=== PATIENT | male | born 1955 | race Caucasian/White ===

== ENCOUNTER → 2018-02-21 12:16 | Outpatient (CLI) | payer MEDICARE, SELFPAY ==
[2018-02-21 13:54] LABS: *AMPHETAMINES SCREEN URINE Negative (Negative); *BARBITURATES SCREEN URINE Negative (Negative); *BENZODIAZEPINES SCREEN URINE Negative (Negative); Cannabinoids THC Negative (Negative); Cocaine Screen,Urine Negative (Negative); METHADONE URINE SCREEN Negative (Negative); OPIATES URINE SCREEN Negative (Negative)
[2018-02-21 13:56] LABS: Tricyclic Antidepressants Negative (Negative)
[2018-02-24 13:24] LABS: Fentanyl Interpretation Negative.; Fentanyl by LC-MS/MS Negative; Norfentanyl by LC-MS/MS Negative
[2018-02-27 18:09] LABS: Buprenorphine Negative; Norbuprenorphine Negative
[2018-03-05 14:32] LABS: Ethanol Not Detected; Isopropanol Not Detected
[2018-03-05 14:33] LABS: Acetone Not Detected
== END ==
PROVIDERS: PCP Internal Medicine Infectious Disease; Visit Provider Internal Medicine Infectious Disease
DX: Z79.891 Long term (current) use of opiate analgesic (principal); G89.4 Chronic pain syndrome; B20 Human immunodeficiency virus [HIV] disease
CPT/HCPCS: 80307; 80320; 80354; 84600

== ENCOUNTER 2018-07-29 14:43 | Emergency (ER) | payer SELFPAY ==
--- NOTE | 2018-07-29 15:04 | NUR.NOTE ---
Nursing Note: Patient stated to Access, Cameron that he could not wait any longer. Melba Dye.
[2018-08-01 14:41] LABS: HIV-1 RNA Quantification Undetected copies/mL (UNDECT)
[2018-08-01 14:51] LABS: CD3 81 % (62-87); CD4 47 % (35-63); CD8 33 % (10-35)
== END 2018-07-29 15:03 | disposition left before discharge ==
PROVIDERS: Emergency Provider Student in an Organized Health Care Education/Training Program; PCP Internal Medicine Infectious Disease
DX: R69 Illness, unspecified (principal); Z53.21 Procedure and treatment not carried out due to patient leaving prior to being seen by health care provider

== ENCOUNTER 2018-07-30 08:01 | Emergency (ER) | payer MEDICARE, SELFPAY ==
[2018-07-30 08:09] VITALS: BP 142/79; PULSE 65; RESP 15; TEMP 36.7; O2SAT 94
[2018-07-30] MEDS: Lactated Ringers 1,000 ML 1000 ML IV (09:04)
--- NOTE | 2018-07-30 09:10 | W.ED.GENAD ---
Discharge Plan Disposition Patient Disposition: HOME Discharge Details Chief Complaint: RespSymp Clinical Impression: Pneumonia Primary Care Provider: Frederick Hauser ED Provider: Amos Li Home Meds and New Rx's Prescriptions: New doxycycline hyclate [Vibramycin] 100 mg capsule 100 mg PO BID Qty: 14 RF: 0 Continued trazodone 100 MG tablet 1 tab PO PRN PRNRF: 0 hydromorphone 4 MG tablet 4 mg PO Q4H PRN PRNRF: 0 Genvoya 1 EACH tablet 1 ea PO DAILY RF: 0 Discharge Instructions Instructions: Pneumonia (ED) Additional Instructions: Please take the full course of antibiotic as prescribed. Labs are pending at time of discharge that require followup. Please follow-up with your infectious disease specialist. Call for an appointment. Please contact your primary care physician to arrange follow-up. Return to the ER for any worsening or new concerning symptoms. Referrals: Frederick Hauser [Primary Care Provider] - Medical Decision Making 9:10 --62-year-old male chronic HIV on antivirals, here with cough for the past few weeks after travel to the [place] ([place], [place], [place], [place] Patient saturating 94% in no respiratory distress. Consider pneumonia. cxr pending. Will send CD4 and viral load and attempt to obtain OSH ID records. 9:50 --I obtained and reviewed outside hospital records, infectious disease at [facility] office visit 05/29/2018 that notes viral load 05/29/2018 of less than 40, CD4 count 06/13/2017 527. 10:30 --labs reviewed and nondiagnostic. Chest x-ray interpreted by radiology: Negative, called and spoke with the radiologist about potential for right lower lobe infiltrate and she notes none present. Plan to speak with infectious disease. Awaiting callback. Will initiate treatment with doxycycline for clinical PNA. 11:20 --still awaiting callback from infectious disease. Patient wishes to leave at this point. I reviewed diagnostic results with the patient and his and reason for consultation. I recommended he stay for consultation complete but he would prefer to leave. He does plan to up with infectious disease regarding CD4 and viral load that were drawn today and send out labs. Disposition decision was made weighing the risks and benefits of hospitalization versus outpatient treatment, the risk for further decompensation, and the patient's wishes. The patient was stable and requested discharge. Prior to discharge, my usual and customary return precautions were reviewed with the patient - this included follow-up instructions and reason to return to the emergency department if condition worsens, does not improve as expected, or other new concerns arise. HPI General Date/Time Provider Initiated Documentation: 07/30/18 08:24. Limitations to Documentation: no limitations. Information obtained by: patient. HPI Narrative: 62-year-old with history of chronic HIV positive, on antiviral, here with chief complaint of cough. Patient notes that he was recently traveling to [place], [place] and dysuria over the past month. He returned a few days ago. He notes he has had cough for the past 2-3 weeks. Cough is been worse over the past 4 days. Is associated fever as well as sinus congestion. Cough is productive of paulson sputum. He does have sensation of chest congestion with this cough. Related Data Home Medications Medication Instructions Recorded Confirmed hydromorphone 4 mg PO Q4H PRN PRN 02/22/15 07/30/18 trazodone 1 tab PO PRN PRN 02/22/15 07/30/18 Genvoya 1 ea PO DAILY 11/10/16 07/30/18 doxycycline hyclate [Vibramycin] 100 mg PO BID #14 cap 07/30/18 Previous Rx's Medication Instructions Recorded doxycycline hyclate [Vibramycin] 100 mg PO BID #14 cap 07/30/18 Allergies Allergy/AdvReac Type Severity Reaction Status Date / Time No Known Allergies Allergy Unverified 07/30/18 08:18 General Stated Complaint: RespSymp ESDRAS: 3 Review of Systems Review of Systems All systems reviewed & are unremarkable except as noted in HPI and below Constitutional Reports fever(s) Respiratory Reports cough [facility] Medical History HIV (human immunodeficiency virus infection) (Chronic) Chronic hepatitis C Social History Smoking/Tobacco Use Status: Never Exam Const General: cooperative and no acute distress Orientation: alert and awake HENMT Head: normocephalic Mouth: moist mucous membranes Throat: tonsils normal, uvula midline and postnasal drainage Eyes Conjunctivae: normal conjunctivae Sclera: normal sclerae EOM: EOM intact bilaterally Neck Neck: trachea midline and supple Resp Auscultation: rales bilaterally, rhonchi and no wheezes Cardio Jugular venous pressure: no JVD Rate: regular rate and not tachycardic Rhythm: regular rhythm Heart Sounds: murmur systolic I/ and at the right sternal border GI Palpation: soft, not firm, no guarding, no masses, not rigid and nontender Skin General skin exam: no rashes or lesions noted Neuro General: alert, awake, oriented x3 and tone normal Extrem General: no edema Psych Mental Status: mental status grossly normal Course Vital Signs Temperature 36.7 C 07/30/18 08:09 Pulse 65 07/30/18 08:09 Respiratory Rate 15 07/30/18 08:09 Blood Pressure 142/79 H 07/30/18 08:09 Pulse Oximetry 94 L 07/30/18 08:09 Temperature 36.7 C 07/30/18 08:09 Temperature Source Oral 07/30/18 08:09 Pulse 65 07/30/18 08:09 Respiratory Rate 15 07/30/18 08:09 Respiratory Effort Non-Labored 07/30/18 08:15 Respiratory Depth Normal 07/30/18 08:15 Blood Pressure 142/79 H 07/30/18 08:09 Blood Pressure Position Sitting 07/30/18 08:09 Pulse Oximetry 94 L 07/30/18 08:09 Oxygen Delivery Method Room Air 07/30/18 08:09 Oxygen Flow Rate 0 07/30/18 08:09 Pain Level 0 07/30/18 08:09 Lab/Test Results Lab/Test Results: 07/30/18 08:47 Nasopharynx Influenza Types A,B Antigen - Pending 07/30/18 08:41 Blood Blood Culture - Pending 07/30/18 08:41 Blood Blood Culture - Pending
--- NOTE | 2018-07-30 09:16 | ED.GENADUL_ITS ---
Discharge Plan Disposition Patient Disposition: HOME Discharge Details Chief Complaint: RespSymp Clinical Impression: Pneumonia Primary Care Provider: Frederick Hauser ED Provider: Amos Li Home Meds and New Rx's Prescriptions: New doxycycline hyclate [Vibramycin] 100 mg capsule 100 mg PO BID Qty: 14 RF: 0 Continued trazodone 100 MG tablet 1 tab PO PRN PRNRF: 0 hydromorphone 4 MG tablet 4 mg PO Q4H PRN PRNRF: 0 Genvoya 1 EACH tablet 1 ea PO DAILY RF: 0 Discharge Instructions Instructions: Pneumonia (ED) Additional Instructions: Please take the full course of antibiotic as prescribed. Labs are pending at time of discharge that require followup. Please follow-up with your infectious disease specialist. Call for an appointment. Please contact your primary care physician to arrange follow-up. Return to the ER for any worsening or new concerning symptoms. Referrals: Frederick Hauser [Primary Care Provider] - Medical Decision Making 9:10 --62-year-old male chronic HIV on antivirals, here with cough for the past few weeks after travel to the [place] ([place], [place], [place], [place]). Patient saturating 94% in no respiratory distress. Consider pneumonia. cxr pending. Will send CD4 and viral load and attempt to obtain OSH ID records. 9:50 --I obtained and reviewed outside hospital records, infectious disease at [facility] office visit 05/29/2018 that notes viral load 05/29/2018 of less than 40, CD4 count 06/13/2017 527. 10:30 --labs reviewed and nondiagnostic. Chest x-ray interpreted by radiology: Negative, called and spoke with the radiologist about potential for right lower lobe infiltrate and she notes none present. Plan to speak with infectious disease. Awaiting callback. Will initiate treatment with doxycycline for clinical PNA. 11:20 --still awaiting callback from infectious disease. Patient wishes to leave at this point. I reviewed diagnostic results with the patient and his and reason for consultation. I recommended he stay for consultation complete but he would prefer to leave. He does plan to up with infectious disease regarding CD4 and viral load that were drawn today and send out labs. Disposition decision was made weighing the risks and benefits of hospitalization versus outpatient treatment, the risk for further decompensation, and the patient's wishes. The patient was stable and requested discharge. Prior to discharge, my usual and customary return precautions were reviewed with the patient - this included follow-up instructions and reason to return to the emergency department if condition worsens, does not improve as expected, or other new concerns arise. HPI General Date/Time Provider Initiated Documentation: 07/30/18 08:24 . Limitations to Documentation: no limitations . Information obtained by: patient . HPI Narrative: 62-year-old with history of chronic HIV positive, on antiviral, here with chief complaint of cough. Patient notes that he was recently traveling to [place], [place], [place] and dysuria over the past month. He returned a few days ago. He notes he has had cough for the past 2-3 weeks. Cough is been worse over the past 4 days. Is associated fever as well as sinus congestion. Cough is productive of paulson sputum. He does have sensation of chest congestion with this cough. Related Data Home Medications Medication Instructions Recorded Confirmed hydromorphone 4 mg PO Q4H PRN PRN 02/22/15 07/30/18 trazodone 1 tab PO PRN PRN 02/22/15 07/30/18 Genvoya 1 ea PO DAILY 11/10/16 07/30/18 doxycycline hyclate [Vibramycin] 100 mg PO BID #14 cap 07/30/18 Previous Rx's Medication Instructions Recorded doxycycline hyclate [Vibramycin] 100 mg PO BID #14 cap 07/30/18 Allergies Allergy/AdvReac Type Severity Reaction Status Date / Time No Known Allergies Allergy Unverified 07/30/18 08:18 General Stated Complaint: RespSymp ESDRAS: 3 Review of Systems Review of Systems All systems reviewed & are unremarkable except as noted in HPI and below Constitutional Reports fever(s) Respiratory Reports cough [facility] Medical History HIV (human immunodeficiency virus infection) (Chronic) Chronic hepatitis C Social History Smoking/Tobacco Use Status: Never Exam Const General: cooperative and no acute distress Orientation: alert and awake HENMT Head: normocephalic Mouth: moist mucous membranes Throat: tonsils normal, uvula midline and postnasal drainage Eyes Conjunctivae: normal conjunctivae Sclera: normal sclerae EOM: EOM intact bilaterally Neck Neck: trachea midline and supple Resp Auscultation: rales bilaterally, rhonchi and no wheezes Cardio Jugular venous pressure: no JVD Rate: regular rate and not tachycardic Rhythm: regular rhythm Heart Sounds: murmur systolic I/ and at the right sternal border GI Palpation: soft, not firm, no guarding, no masses, not rigid and nontender Skin General skin exam: no rashes or lesions noted Neuro General: alert, awake, oriented x3 and tone normal Extrem General: no edema Psych Mental Status: mental status grossly normal Course Vital Signs Temperature 36.7 C 07/30/18 08:09 Pulse 65 07/30/18 08:09 Respiratory Rate 15 07/30/18 08:09 Blood Pressure 142/79 H 07/30/18 08:09 Pulse Oximetry 94 L 07/30/18 08:09 Temperature 36.7 C 07/30/18 08:09 Temperature Source Oral 07/30/18 08:09 Pulse 65 07/30/18 08:09 Respiratory Rate 15 07/30/18 08:09 Respiratory Effort Non-Labored 07/30/18 08:15 Respiratory Depth Normal 07/30/18 08:15 Blood Pressure 142/79 H 07/30/18 08:09 Blood Pressure Position Sitting 07/30/18 08:09 Pulse Oximetry 94 L 07/30/18 08:09 Oxygen Delivery Method Room Air 07/30/18 08:09 Oxygen Flow Rate 0 07/30/18 08:09 Pain Level 0 07/30/18 08:09 Lab/Test Results Lab/Test Results: 07/30/18 08:47 Nasopharynx Influenza Types A,B Antigen - Pending 07/30/18 08:41 Blood Blood Culture - Pending 07/30/18 08:41 Blood Blood Culture - Pending
[2018-07-30] MEDS: Acetaminophen 325 MG TAB 650 MG PO (09:22)
[2018-07-30] MEDS: Ibuprofen 600 MG TAB PO (09:23)
[2018-07-30 09:43] LABS: Abs Immature Grans 0.01 k/cumm (0.0-0.09); Absolute Basophil Count 0.03 k/cumm (0.0-0.2); Absolute Eosinophil Count 0.25 k/cumm (0.0-0.7); Absolute Lymphocyte Count 1.55 k/cumm (1.2-3.4); Absolute Monocyte Count 0.79 k/cumm (0.11-0.7); Absolute Neutrophil Count 4.16 k/cumm (1.2-6.7); Basophils % 0.4; Eosinophils % 3.7; HCT 38.9 % (40.0-50.0); HGB 12.7 g/dL (13.5-17.5); Immature Grans % 0.1; Lactate-non-spesis 1.2 mmol/l (0.6-1.4); Lymphocytes % 22.8; Mean Corp. HGB Concentration 32.6 g/dL (32.0-36.0); Mean Corpuscular Hemoglobin 29.7 pg (27.0-33.0); Mean Corpuscular Volume 90.9 fL (80-95); Mean Platelet Volume 10.5 fL (8.0-11.0); Monocytes % 11.6; Neutrophils % 61.4; Platelet Count 143 x1000/uL (130-400); RBC 4.28 m/cumm (4.50-6.00); RBC Distribution Width 14.2 % (11.8-14.1); White Blood Cell Count 6.79 k/cumm (4.4-10.8)
[2018-07-30 09:58] LABS: ALT 20 U/L (12-78); AST 22 U/L (15-37); Albumin 3.2 g/dL (3.4-5.0); Alkaline Phosphatase 55 U/L (46-116); Anion Gap 7.8 mmol/L (3-11); BUN 17 mg/dL (7-18); Bilirubin, Total 0.4 mg/dL (0.2-1.0); CO2 27.2 mmol/L (21.0-32.0); CREATININE 0.81 mg/dL (0.70-1.30); Calcium 8.4 mg/dL (8.5-10.1); Chloride 103 mmol/L (98-107); Glucose 107 mg/dL (70-100); Potassium 4.2 mmol/L (3.5-5.1); Sodium 138 mmol/L (136-145)
--- NOTE | 2018-07-30 10:08 | DI.RAD_ITS ---
SYMPTOM/DIAGNOSIS: COUGH, HIV+, [place] AND LATERAL CHEST: Comparison is made with 07/02/12. The heart size is normal. The lungs appear clear. No infiltrate or effusion is seen. No adenopathy is visible. IMPRESSION: Negative chest xray.
[2018-07-30 10:48] VITALS: BP 151/96; PULSE 76; RESP 18; TEMP 36.7; O2SAT 97
[2018-07-30] MEDS: Doxycycline Hyclate 100 MG CAP PO (10:51)
[2018-07-30 11:59] VITALS: BP 151/96; PULSE 76; RESP 18; TEMP 36.7; O2SAT 97
== END 2018-07-30 11:50 | disposition home or self-care (01) ==
PROVIDERS: Emergency Provider Student in an Organized Health Care Education/Training Program; PCP Internal Medicine Infectious Disease
DX: J18.9 Pneumonia, unspecified organism (principal); Z21 Asymptomatic human immunodeficiency virus [HIV] infection status
CPT/HCPCS: 36415; 80053; 87040; 87449; 87536; 96360; 99284; 71046; 83605; 85025; 86359; 86360

== ENCOUNTER 2018-11-19 08:25 | Outpatient (CLI) | payer MEDICARE, SELFPAY ==
[2018-11-19 14:21] LABS: *AMPHETAMINES SCREEN URINE Negative (Negative); *BARBITURATES SCREEN URINE Negative (Negative); *BENZODIAZEPINES SCREEN URINE Negative (Negative); Cannabinoids THC Negative (Negative); Cocaine Screen,Urine Negative (Negative); METHADONE URINE SCREEN Negative (Negative); OPIATES URINE SCREEN Negative (Negative)
[2018-11-19 14:22] LABS: Tricyclic Antidepressants Negative (Negative)
[2018-11-21 16:56] LABS: HIV-1 RNA Quantification Undetected copies/mL (UNDECT)
== END 2018-11-19 08:45 ==
PROVIDERS: PCP Internal Medicine Infectious Disease; Visit Provider Internal Medicine Infectious Disease
DX: G89.4 Chronic pain syndrome (principal); Z79.891 Long term (current) use of opiate analgesic; B20 Human immunodeficiency virus [HIV] disease
CPT/HCPCS: 36415; 80307; 87536

== ENCOUNTER 2021-01-03 12:54 | Outpatient (REF) | payer MEDICARE, SELFPAY ==
[2021-01-08 00:29] LABS: 2-Hydroxy Ethyl Flurazepam Not Detected ng/mL (Cutoff: 10); 3,4-methylenedioxyamphetamine Not Detected ng/mL (Cutoff: 100); 3,4-methylenedioxyethylampheta Not Detected ng/mL (Cutoff: 100); 3,4-methylenedioxymethamphetam Not Detected ng/mL (Cutoff: 100); 6-monoacetylmorphine Not Detected ng/mL (Cutoff: 25); Alpha-Hydroxy Midazolam Not Detected ng/mL (Cutoff: 10); Alpha-Hydroxy Triazolam Not Detected ng/mL (Cutoff: 10); Alpha-Hydroxyalprazolam Not Detected ng/mL (Cutoff: 10); Alpha-OH-alprazolam Glucuronid Not Detected ng/mL (Cutoff: 50); Alprazolam Not Detected ng/mL (Cutoff: 10); Amphetamine Not Detected ng/mL (Cutoff: 100); Barbiturates Negative ng/mL (Cutoff: 200); Buprenorphine Not Detected ng/mL (Cutoff: 5); Chlordiazepoxide Not Detected ng/mL (Cutoff: 10); Clobazam Not Detected ng/mL (Cutoff: 10); Clonazepam Not Detected ng/mL (Cutoff: 10); Cocaine Negative ng/mL (Cutoff: 150); Codeine Not Detected ng/mL (Cutoff: 25); Comment Normal; Creatinine, U 95.2 mg/dL; Diazepam Not Detected ng/mL (Cutoff: 10); Dihydrocodeine Not Detected ng/mL (Cutoff: 25); EDDP Not Detected ng/mL (Cutoff: 25); Ephedrine Not Detected ng/mL (Cutoff: 100); Fentanyl Not Detected ng/mL (Cutoff: 2); Flurazepam Not Detected ng/mL (Cutoff: 10); Hydrocodone Not Detected ng/mL (Cutoff: 25); Hydromorphone Not Detected ng/mL (Cutoff: 25); Hydromorphone-3-beta-glucuroni Not Detected ng/mL (Cutoff: 100); Lorazepam Not Detected ng/mL (Cutoff: 10); Lorazepam Glucuronide Not Detected ng/mL (Cutoff: 50); Meperidine Not Detected ng/mL (Cutoff: 25); Methadone Not Detected ng/mL (Cutoff: 25); Methamphetamine Not Detected ng/mL (Cutoff:100); Methylphenidate Not Detected ng/mL (Cutoff: 20); Midazolam Not Detected ng/mL (Cutoff: 10); Morphine Not Detected ng/mL (Cutoff: 25); N-Desmethylclobazam Not Detected ng/mL (Cutoff: 200); N-desmethyltapentadol Not Detected ng/mL (Cutoff: 50); Naloxone Not Detected ng/mL (Cutoff: 25); Norbuprenorphine Not Detected ng/mL (Cutoff: 5); Norfentanyl Not Detected ng/mL (Cutoff: 2); Norhydrocodone Not Detected ng/mL (Cutoff: 25); Normeperidine Not Detected ng/mL (Cutoff: 25); Noroxycodone Not Detected ng/mL (Cutoff: 25); Noroxymorphone Not Detected ng/mL (Cutoff: 25); O-desmethyltramadol Not Detected ng/mL (Cutoff: 25); Oxazepam Glucuronide Not Detected ng/mL (Cutoff: 50); Phencyclidine (PCP) Not Detected ng/mL (Cutoff: 20); Phentermine Not Detected ng/mL (Cutoff: 100); Prazepam Not Detected ng/mL (Cutoff: 10); Propoxyphene Not Detected ng/mL (Cutoff: 25); Pseudoephedrine Not Detected ng/mL (Cutoff: 100); Ritalinic Acid Not Detected ng/mL (Cutoff: 100); Specific Gravity 1.014; Tapentadol Not Detected ng/mL (Cutoff: 25); Temazepam Not Detected ng/mL (Cutoff: 10); Temazepam Glucuronide Not Detected ng/mL (Cutoff: 50); Tetrahydrocannabinol Negative ng/mL (Cutoff: 50); Tramadol Not Detected ng/mL (Cutoff: 25); Triazolam Not Detected ng/mL (Cutoff: 10); Zolpidem Phenyl-4-Carboxy acid Not Detected ng/mL (Cutoff: 10); pH 6.6
== END 2021-01-03 12:55 | disposition home or self-care (01) ==
LOC: LBN 12:54
PROVIDERS: PCP Internal Medicine Infectious Disease; Visit Provider Internal Medicine Infectious Disease
DX: Z79.891 Long term (current) use of opiate analgesic (principal); G89.4 Chronic pain syndrome
CPT/HCPCS: 80307; 80347; 80364

== ENCOUNTER 2023-11-17 14:45 | Emergency (ER) | payer MEDICARE, SELFPAY ==
[2023-11-17 14:47] VITALS: BP 140/74; PULSE 47; RESP 184; TEMP 37.1; O2SAT 100
[2023-11-17 14:59] VITALS: BP 140/74; PULSE 47; RESP 184; TEMP 37.1; O2SAT 100
--- NOTE | 2023-11-17 15:15 | ED.GENADUL_ITS ---
Discharge Plan Disposition Patient Disposition: Home Condition: Stable Discharge Details Clinical Impression: Gout Primary Care Provider: Frederick Hauser ED Provider: Adán Gunter Home Meds and New Rx's Prescriptions: New prednisone 20 mg tablet 40 mg PO DAILY 5 Days Qty: 10 0RF No Action Biktarvy 30-120-15 mg tablet 1 tab PO DAILY trazodone 100 MG tablet 1 tab PO PRN PRN hydromorphone 4 MG tablet 4 mg PO Q4H PRN PRN Discharge Instructions Instructions: Gout (ED) Additional Instructions: Please follow-up with your infectious disease specialist and primary care physician. Please return to the emergency department for any worsening symptoms HPI General Date/Time Provider Initiated Documentation: 11/17/23 14:52 . HPI Narrative: 67-year-old male history of hepatitis C, HIV, on antiretrovirals undetectable viral load for years and strong CD4 count, history of recurrent gout presents with painful swelling and redness to the base of his right large toe rating to dorsum of foot, denies fevers chills nausea vomiting or systemic signs of illness. Usually uses home remedies however due to discomfort and swelling to the anterior portion of foot patient presents for further evaluation. Denies history of thromboembolic disease. Denies trauma. Related Data Home Medications Medication Instructions Recorded Confirmed hydromorphone 4 mg tablet 4 mg PO Q4H PRN PRN 02/22/15 11/17/23 trazodone 100 mg tablet 1 tab PO PRN PRN 02/22/15 11/17/23 bictegravir 30 mg-emtricitabine 1 tab PO DAILY 11/14/22 11/17/23 120 mg-tenofovir alafenam 15 mg tablet (Biktarvy) prednisone 20 mg tablet 40 mg (2 x 20 mg) PO DAILY 5 days 11/17/23 #10 tabs Previous Rx's Medication Instructions Recorded prednisone 20 mg tablet 40 mg (2 x 20 mg) PO DAILY 5 days 11/17/23 #10 tabs Allergies Allergy/AdvReac Type Severity Reaction Status Date / Time No Known Allergies Allergy Unverified 11/17/23 15:03 General Stated Complaint: Cellulitis ESDRAS: 3 Review of Systems Narrative: Review of Systems Constitutional: negative Eyes: negative ENT: negative Cardiovascular: negative Respiratory: negative Gastrointestinal: negative : negative Musculoskeletal: Foot/toe pain swelling Skin: negative Neurologic: negative Psych: negative Exam Narrative Exam Narrative: Physical Examination General: alert, awake, cooperative, resting comfortably, no acute distress HEENT: normocephalic, atraumatic; PERRL, EOM intact, conjunctiva normal; no nasal discharge; moist mucous membranes, oral and pharyngeal mucosa normal, tolerating secretions Neck: supple, trachea midline; full ROM Chest: normal to inspection Respiratory: normal respiratory effort, speaking in full sentences Skin: See extremity Neuro: AAOx3, normal speech, moving all extremities Extremities: Erythema and induration to soft tissue at base of first toe right foot, with extension to dorsum of foot, DP pulse intact sensation intact range of motion intact no crepitus bulla or fluctuance noted no lymphangitic streaking; localized edema to foot Psych: Appropriate mood and affect Course Vital Signs Vital signs: Vital Signs Temperature 37.1 C 11/17/23 14:47 Pulse 47 L 11/17/23 14:47 Respiratory Rate 184 H 11/17/23 14:47 Blood Pressure 140/74 11/17/23 14:47 Pulse Oximetry 100 11/17/23 14:47 Temperature 37.1 C 11/17/23 14:59 Temperature Source Temporal Artery Scan 11/17/23 14:59 Pulse 47 L 11/17/23 14:59 Respiratory Rate 184 H 11/17/23 14:59 Blood Pressure 140/74 11/17/23 14:59 Blood Pressure Position Sitting 11/17/23 14:59 Pulse Oximetry 100 11/17/23 14:59 Oxygen Delivery Method Room Air 11/17/23 14:59 Oxygen Flow Rate 0 11/17/23 14:59 Medical Decision Making 67-year-old male history of hepatitis C, HIV, on antiretrovirals undetectable viral load for years and strong CD4 count, history of recurrent gout presents with painful swelling and redness to the base of his right large toe rating to dorsum of foot, denies fevers chills nausea vomiting or systemic signs of illness. Usually uses home remedies however due to discomfort and swelling to the anterior portion of foot patient presents for further evaluation. Denies history of thromboembolic disease. Denies trauma.Erythema and induration to soft tissue at base of first toe right foot, with extension to dorsum of foot, DP pulse intact sensation intact range of motion intact no crepitus bulla or fluctuance noted no lymphangitic streaking; localized edema to foot Given history and physical high clinical suspicion for localized gout of great toe low suspicion for cellulitis septic joint or deep space infection such as myositis or abscess, no evidence of necrotizing fasciitis; bedside ultrasound lower extremity negative for DVT. Will trial oral steroid for the next 5 to 7 days. Patient to follow closely with his infectious disease provider. Given home care instructions and strict return precautions Quality:SDOH Health Related Social Needs: No Data to Display PFSH All Active Problems (Updated 11/17/23 @ 15:20 by Adán Gunter MD) Gout (Chronic) Medical History (Updated 11/17/23 @ 15:20 by Adán Gunter MD) HIV (human immunodeficiency virus infection) Chronic hepatitis C INTERFERON TREATMENT NOW NEGATIVE Social History Smoking/Tobacco Use Status: Never Smoking risk assessment performed?: Yes Drug use: Never Do you feel safe in your relationship?: Yes
[2023-11-17] MEDS: predniSONE 20 MG TAB 40 MG PO (15:19)
[2023-11-17 15:35] VITALS: BP 119/67; PULSE 51; RESP 16; O2SAT 94
== END 2023-11-17 15:40 | disposition home or self-care (01) ==
LOC: ER 15:43
PROVIDERS: Emergency Provider Emergency Medicine; PCP Internal Medicine Infectious Disease
DX: M10.9 Gout, unspecified; Z21 Asymptomatic human immunodeficiency virus [HIV] infection status; Z79.899 Other long term (current) drug therapy; Z86.19 Personal history of other infectious and parasitic diseases
CPT/HCPCS: 99284; J7512

== ENCOUNTER 2023-11-26 20:10 | Emergency (ER) | payer MEDICARE, SELFPAY ==
[2023-11-26 20:11] VITALS: BP 146/88; PULSE 85; RESP 16; TEMP 37.7; O2SAT 97
--- NOTE | 2023-11-26 20:29 | ED.GENADUL_ITS ---
Discharge Plan Discharge Details Chief Complaint: ETOHWithdr Primary Care Provider: Frederick Hauser ED Provider: Jesse Mcnally Home Meds and New Rx's Prescriptions: No Action Biktarvy 30-120-15 mg tablet 1 tab PO DAILY trazodone 100 MG tablet 1 tab PO PRN PRN hydromorphone 4 MG tablet 4 mg PO Q4H PRN PRN HPI General Date/Time Provider Initiated Documentation: 11/26/23 20:28 . HPI Narrative: Patient presents emergency department brought in by the and daughter stating that he has been drinking lots of beer all day and it is unsustainable at home. He was here today but he left again and for now he states that he does not want to be here and he does want any help and feels that he does not need to be admitted. Related Data Home Medications Medication Instructions Recorded Confirmed hydromorphone 4 mg tablet 4 mg PO Q4H PRN PRN 02/22/15 11/17/23 trazodone 100 mg tablet 1 tab PO PRN PRN 02/22/15 11/17/23 bictegravir 30 mg-emtricitabine 1 tab PO DAILY 11/14/22 11/17/23 120 mg-tenofovir alafenam 15 mg tablet (Biktarvy) Allergies Allergy/AdvReac Type Severity Reaction Status Date / Time No Known Allergies Allergy Unverified 11/26/23 20:16 General Stated Complaint: GenMedical ESDRAS: 3 Review of Systems Narrative: Review of Systems: Constitutional: No fevers, chills, sweats Eye: No recent visual problems ENT: No ear pain, nasal congestion, sore throat Respiratory: No shortness of breath, cough Cardiovascular: No Chest pain, palpitations, syncope Gastrointestinal: No nausea, vomiting, diarrhea Genitourinary: No hematuria Kamran/Lymph: Negative for bruising tendency, swollen lymph glands Endocrine: Negative for excessive thirst, excessive hunger Musculoskeletal: No back pain, neck pain, joint pain, muscle pain, decreased range of motion Integumentary: No rash, pruritus, abrasions Neurologic: Alert & oriented X 4 Psychiatric: No anxiety, depression Exam Narrative Exam Narrative: Exam; vitals signs as reported above normal Constitutional; In no acute distress, afebrile General: cooperative, healthy appearing, comfortable and no acute distress HEENT: Head: normal to inspection, no palpable skull fracture and normocephalic atraumatic Eyes: : appearance normal, both eyes and all related structures EOM intact bilaterally Pupils: PERRL : conjunctiva normal Direct ophthalmoscopy: normal light reflex, normal conjunctiva, normal visual acuity Ears: Normal TM, normal external canal Nose: normal no rhinorreha Neck no JVD, supple non tender Neck: normal visual inspection, full ROM and no lymphadenopathy Chest: normal inspection of the chest Respiratory : normal respiratory effort and able to speak in complete sentences no wheezing no rales Cardio Rate: regular rate, rhythm: regular rhythm normal heart sounds S1 and S2 no murmurs, gallops, or rubs GI : normal to inspection, normal bowel sounds, soft, non tender, non distended, no organomegaly Back/Spine/ no CVA tenderness Thoracic/Lumbar Spine: no tenderness or deformities Skin no rashes or lesions Neuro: patient alert oriented x 4 and no meningeal signs, Cranial Nerves: CN's II-XI intact bilaterally, Cognition: normal cognition, Speech: speech normal, Gait: normal gait, Depp tendon reflexes normal 2+ muscle strength 5/5 bilaterally, no evidence signs of inebriation or ataxia Extremities, no edema, full range of motion, normal strength Course Vital Signs Vital signs: Vital Signs Temperature 37.7 C H 11/26/23 20:11 Pulse 85 11/26/23 20:11 Respiratory Rate 16 11/26/23 20:11 Blood Pressure 146/88 H 11/26/23 20:11 Pulse Oximetry 97 11/26/23 20:11 Temperature 37.7 C H 11/26/23 20:11 Temperature Source Temporal Artery Scan 11/26/23 20:11 Pulse 85 11/26/23 20:11 Respiratory Rate 16 11/26/23 20:11 Respiratory Effort Normal, Non-Labored 11/26/23 20:16 Respiratory Pattern Normal 11/26/23 20:18 Blood Pressure 146/88 H 11/26/23 20:11 Blood Pressure Position Sitting 11/26/23 20:11 Pulse Oximetry 97 11/26/23 20:11 Oxygen Delivery Method Room Air 11/26/23 20:11 Oxygen Flow Rate 0 11/26/23 20:11 Pain Level 0 11/26/23 20:11 Medical Decision Making MDM: Summary: Patient brought into the emergency department by the daughter and the stating that he has been drinking alcohol constantly but he refuses to be seen and does not show any clinical evidence of inebriation and declines repeat labs. I tried to convince the patient that if he needs help with open 15/01 to help him but he is still declines. I have no other option but to discharge him and I told him he can come back whenever he needs to. He clinically does not have signs of inebriation Data Review Analysis All the data on this patient was reviewed by me including laboratory and imaging studies as well as bedside studies performed by me Independent review of Studies Imaging Lab: Risk Stratification: Patient who refuses to be seen who was brought in by the and the daughter who will be discharged home Differential Diagnosis: 1. Alcohol intoxication 2. Depression 3. 4. 5. Consultants: Shared disposition: Patient presents his decision and he we will be discharged as per his request Impression: Medical Records Medical records reviewed: Yes I reviewed the patient's medical records. Quality:SDOH Health Related Social Needs: No Data to Display PFSH All Active Problems Gout (Chronic) Medical History HIV (human immunodeficiency virus infection) Chronic hepatitis C INTERFERON TREATMENT NOW NEGATIVE Social History Smoking/Tobacco Use Status: Never Smoking risk assessment performed?: Yes Alcohol Intake: current Alcohol Intake frequency: 3 or more drinks per day Alcohol type: beer Drug use: Never Housing: house Do you feel safe at home: Yes Do you feel safe in your relationship?: Yes PAWSS Have you Been Recently Intoxicated or Drunk Within the Last 30 days?: Yes Have you Ever Experienced Previous Episodes of Alcohol Withdrawal?: Yes Have you ever Experienced Withdrawal Seizures?: Yes Have you ever Experienced Delirium Tremens(DT)s?: Yes Have you ever undergone Alcohol Rehabilitation Treatment (i.e, inpt ot outpatient treatment programs)?: No Have you ever Experienced Blackouts?: Yes Have you ever Combined Alcohol with other Downers within the last 90 days?: No Have you ever Combined Alcohol with any other Substance of Abuse during the last 90 days?: No Positive Blood Alcohol level on Presentation? [PCS.BAL]: Unable to Obtain Evidence of Increased Autonomic Activity (i.e. HR>120, tremor, sweating, agitation, nausea)?: Yes Result: 6
[2023-11-26 20:42] VITALS: RESP 20
== END 2023-11-26 20:52 | disposition home or self-care (01) ==
PROVIDERS: Emergency Provider Emergency Medicine Emergency Medical Services; PCP Internal Medicine Infectious Disease
DX: F10.10 Alcohol abuse, uncomplicated (principal); Z53.29 Procedure and treatment not carried out because of patient's decision for other reasons
CPT/HCPCS: 99281; 99282